=== PATIENT | female | born 1960 | race Two or more races ===

== ENCOUNTER → 2022-04-09 | Outpatient (CLI) | payer BC | LOC: M PLALAB 13:28 | PROVIDERS: ATTEND Nurse Practitioner Family | DX: Z12.4 Encounter for screening for malignant neoplasm of cervix (principal); Z15.01 Genetic susceptibility to malignant neoplasm of breast ==

== ENCOUNTER → 2022-04-09 | Outpatient (REF) | payer BC | LOC: M PLALAB 13:42 | PROVIDERS: ATTEND Nurse Practitioner Family | DX: R87.612 Low grade squamous intraepithelial lesion on cytologic smear of cervix (LGSIL) (principal); Z12.4 Encounter for screening for malignant neoplasm of cervix | CPT/HCPCS: 87624; G0123 ==